=== PATIENT | male | born 1975 | race Caucasian/White ===

== ENCOUNTER 2021-09-12 15:19 | Emergency (ER) | payer BC, OTHER ==
[~2021-09-12] VITALS: Ht 172.7 cm; Wt 106.6 kg
[2021-09-12 15:53] LABS: ABSOLUTE NEUTROPHILS 4.7 thou/uL (1.4-8.2); EOSINOPHILS 0.7 % (0.0-3.0); HEMATOCRIT 47.9 % (42.0-52.0); HEMOGLOBIN 16.7 gm/dL (14.0-18.0); LYMPHOCYTES 23.6 % (24.0-44.0); MCH 30.5 pg (26.0-34.0); MCHC 34.8 g/dL (28.0-37.0); MCV 87.8 fL (80.0-100.0); MONOCYTES 7.8 % (1.0-8.0); PLATELET COUNT 174 thou/uL (150-400); POLYS 66.9 % (36.0-66.0); RBC 5.46 mil/uL (4.50-6.00); RDW 13.6 % (10.5-14.5)
[2021-09-12 16:05] LABS: POTASSIUM 4.1 mmol/L (3.5-5.1)
[2021-09-12 16:12] LABS: ALBUMIN 4.1 g/dL (3.4-5.0); TOTAL BILIRUBIN 0.4 mg/dL (0.2-1.0); TOTAL PROTEIN 7.3 g/dL (6.4-8.2)
[2021-09-12 17:32] VITALS: BP 136/69
--- NOTE | 2021-09-13 09:38 | EKG ---
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: DAYANA : 1975 Requested By: Marty Hunter Order Number: [id number] MD: Eilu Nogueira Measurements Intervals [place] Rate: 71 P: 1 [place]: 175 QRS: -31 QRSD: 100 T: 16 QT: 388 QTc: 422 Interpretive Statements Sinus rhythm Left axis deviation RSR' in V1 or V2, probably normal variant No previous ECG available for comparison Electronically Signed On 09-13-2021 9:38:31 RIVET BUCKER by Eliu Nogueira [email or web address] <ELECTRONICALLY SIGNED> By: Eliu Nogueira MD, [facility] 09/13/21 0938 1532 1532 Eliu Nogueira MD, FACC /EPI
== END 2021-09-12 17:33 | disposition home or self-care (01) ==
LOC: ER 15:19
PROVIDERS: Emergency Medicine
DX: R07.89 Other chest pain (principal); I10 Essential (primary) hypertension